=== PATIENT | female | born 1940 | race Caucasian/White ===

== ENCOUNTER → 2023-06-25 12:42 | Outpatient (BNVA) | payer MEDICARE, OTHER, SELFPAY | PROVIDERS: Family Provider Pediatrics; PCP Pediatrics; Visit Provider Dermatology | DX: L64.8 Other androgenic alopecia (principal); H02.109 Unspecified ectropion of unspecified eye, unspecified eyelid; L82.1 Other seborrheic keratosis; L85.3 Xerosis cutis; I78.8 Other diseases of capillaries; L81.4 Other melanin hyperpigmentation; Z85.828 Personal history of other malignant neoplasm of skin ==

== ENCOUNTER → 2023-12-28 14:09 | Outpatient (BNVA) | payer MEDICARE, OTHER, SELFPAY | PROVIDERS: Family Provider Pediatrics; PCP Pediatrics; Visit Provider Nurse Practitioner Family | DX: D48.5 Neoplasm of uncertain behavior of skin (principal); L57.0 Actinic keratosis; H02.109 Unspecified ectropion of unspecified eye, unspecified eyelid; L64.8 Other androgenic alopecia; L30.0 Nummular dermatitis; L81.4 Other melanin hyperpigmentation; I78.8 Other diseases of capillaries; L82.1 Other seborrheic keratosis; Z85.828 Personal history of other malignant neoplasm of skin | CPT/HCPCS: 11102; 17000; 99214 ==

== ENCOUNTER → 2024-06-27 13:19 | Outpatient (BNVA) | payer MEDICARE, OTHER, SELFPAY | PROVIDERS: Family Provider Pediatrics; PCP Pediatrics; Visit Provider Nurse Practitioner Family | DX: C44.519 Basal cell carcinoma of skin of other part of trunk (principal); L30.0 Nummular dermatitis; H02.109 Unspecified ectropion of unspecified eye, unspecified eyelid; L81.4 Other melanin hyperpigmentation; I78.8 Other diseases of capillaries; Z08 Encounter for follow-up examination after completed treatment for malignant neoplasm; Z85.828 Personal history of other malignant neoplasm of skin; L57.0 Actinic keratosis | CPT/HCPCS: 17000; 99214 ==